=== PATIENT | male | born 1970 | race Caucasian/White ===

== ENCOUNTER 2019-01-29 15:31 | Emergency (ER) | payer BC, OTHER ==
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
[2019-01-29] MEDS ORDERED: traMADol 50 MG TAB PO ONE (17:24)
[2019-01-29] MEDS ORDERED: KETOROLAC 30 MG/1 ML SDV IM ONE (17:24)
[2019-01-29 19:06] VITALS: BP 150/95
== END 2019-01-29 19:05 | disposition home or self-care (01) ==
PROC: 2W38X1Z Immobilization of Right Upper Extremity using Splint (ICD-10-PCS; principal; 2019-01-29)
DX: S62.001A Unspecified fracture of navicular [scaphoid] bone of right wrist, initial encounter for closed fracture (principal); S42.001A Fracture of unspecified part of right clavicle, initial encounter for closed fracture; V18.4XXA Pedal cycle driver injured in noncollision transport accident in traffic accident, initial encounter; Y93.55 Activity, bike riding; Y92.9 Unspecified place or not applicable; Y99.9 Unspecified external cause status
CPT/HCPCS: J1885; L3984